=== PATIENT | male | born 1980 | race Caucasian/White ===

== ENCOUNTER 2017-04-01 17:04 | Emergency (ER) | payer SELFPAY ==
[~2017-04-01] VITALS: Ht 177.8 cm; Wt 114.8 kg
[2017-04-01 19:01] VITALS: BP 158/86
== END 2017-04-01 19:01 | disposition home or self-care (01) ==
LOC: ED 17:04
DX: S60.463A Insect bite (nonvenomous) of left middle finger, initial encounter (principal); R51 Headache; W57.XXXA Bitten or stung by nonvenomous insect and other nonvenomous arthropods, initial encounter; Y93.H9 Activity, other involving exterior property and land maintenance, building and construction; Y92.59 Other trade areas as the place of occurrence of the external cause; Y99.8 Other external cause status
CPT/HCPCS: J1885; J2930